=== PATIENT | female | born 1995 | race Caucasian/White ===

== ENCOUNTER 2017-11-14 20:39 | Emergency (ER) | payer OTHER ==
[2017-11-14] MEDS: HYDROcodone/APAP 5/325MG 1 TAB TABLET PO (21:20)
== END 2017-11-14 21:54 | disposition home or self-care (01) ==
LOC: ER 20:39
DX: S89.92XA Unspecified injury of left lower leg, initial encounter (principal); Z88.8 Allergy status to other drugs, medicaments and biological substances; X58.XXXA Exposure to other specified factors, initial encounter; Y93.89 Activity, other specified; Y92.89 Other specified places as the place of occurrence of the external cause; Y99.8 Other external cause status
CPT/HCPCS: 73562; 99284